=== PATIENT | male | born 1995 | race Caucasian/White ===

== ENCOUNTER 2022-02-06 18:25 | Emergency (ER) | payer MEDICAID ==
[~2022-02-06] VITALS: Ht 162.6 cm; Wt 61.7 kg
[2022-02-06 18:40] VITALS: BP 143/92
--- NOTE | 2022-02-06 20:24 | NUR ---
PT TAKEN TO BED 11
--- NOTE | 2022-02-06 20:26 | NUR ---
REPORT GIVEN TO EMILY TAYLOR
--- NOTE | 2022-02-06 20:30 | NUR ---
Patient is lying in bed, awake, chest rise and fall symmetrical, no s/s of distress, ER physician at bedside assessing patient.
[2022-02-06] MEDS ORDERED: [UNRECOGNIZED DRUG - CODE] RC (20:55)
[2022-02-06] MEDS ORDERED: MIRABULK PO (20:55)
--- NOTE | 2022-02-06 21:08 | NUR ---
Patient discharged with v/s stable. Written and verbal after care instructions given and explained. Patient alert, oriented and verbalized understanding of instructions. Ambulatory with steady gait. All questions addressed prior to discharge. ID band removed. Patient advised to follow up with PMD. Rx of miralax and hemorrhoidal cream given. Patient educated on indication of medication including possible reaction and side effects. Opportunity to ask questions provided and answered.
== END 2022-02-06 21:08 | disposition home or self-care (01) ==
LOC: MED 18:25
DX: K64.8 Other hemorrhoids (principal); Z79.899 Other long term (current) drug therapy
CPT/HCPCS: 99282